=== PATIENT | male | born 1990 | race Caucasian/White ===

== ENCOUNTER → 2021-08-17 15:52 | Outpatient (BNVA) | payer OTHER, SELFPAY | PROVIDERS: Family Provider Family Medicine; Visit Provider Nurse Practitioner Family | DX: Z20.822 Contact with and (suspected) exposure to COVID-19 (principal); J06.9 Acute upper respiratory infection, unspecified | CPT/HCPCS: 87400; 87635 ==

== ENCOUNTER 2023-08-31 07:23 | Emergency (ER) | payer OTHER, SELFPAY ==
[2023-08-31 07:59] VITALS: BP 124/78; PULSE 126; TEMP 38.7; O2SAT 96; BMI 29.8
[2023-08-31 12:40] LABS: Adenovirus Not Detected (NOT DETECT); Chlamydia Pneumoniae Not Detected (NOT DETECT); Coronavirus 229E,HKU1,NL63,OC4 Not Detected (NOT DETECT); Human Metapneumovirus Not Detected (NOT DETECT); Human Rhinovirus/Enterovirus Not Detected (NOT DETECT); Influenza A Not Detected (NOT DETECT); Influenza A H1 Not Detected (NOT DETECT); Influenza A H1-2009 Not Detected (NOT DETECT); Influenza A H3 Not Detected (NOT DETECT); Influenza B Detected (NOT DETECT); Mycoplasma Pneumoniae Not Detected (NOT DETECT); Parainfluenza Virus Type 1 Not Detected (NOT DETECT); Parainfluenza Virus Type 2 Not Detected (NOT DETECT); Parainfluenza Virus Type 3 Not Detected (NOT DETECT); Parainfluenza Virus Type 4 Not Detected (NOT DETECT); Respiratory Syncytial Virus A Not Detected (NOT DETECT); Respiratory Syncytial Virus B Not Detected (NOT DETECT); SARS-COV-2 Not Detected (NOT DETECT)
--- NOTE | 2023-08-31 13:33 | ED_ITS ---
HPI - URI/Sore Throat General: Chief Complaint: Upper Respiratory Infection Stated Complaint: body aches, fever Time Seen by Provider: 08/31/23 07:24 Source: patient Mode of arrival: ambulatory History of Present Illness: 33-year-old male presents emergency room planing of 3-day onset of fever nausea and diarrhea. He has had a couple of episodes of posttussive emesis temp at home up to 100 203 cough nonproductive significant myalgias. Initially had some diarrhea but that resolved. MD elicited complaint: fever and cough Onset (ago): day(s) (3) Associated symptoms: Reports fever(s); Deny abdominal pain, chills or chest pain Review of Systems Const: Reports: fever(s), fatigue and malaise; Denies: chills Card: Denies: chest pain Resp: Reports: dyspnea, non-productive cough and wheezing GI: Denies: abdominal pain : Denies: dysuria, urinary frequency or urinary urgency Musc: Denies: neck pain or back pain Skin/Breast: Denies: rash Physical Exam Const: COMMON NORMALS: no acute distress GENERAL APPEARANCE: cooperative and comfortable ORIENTATION/CONSCIOUSNESS: Yes awake, Yes oriented to person, Yes oriented to place and Yes oriented to time HENMT: COMMON NORMALS: normocephalic, atraumatic and hearing grossly normal bilaterally HEAD & SCALP: normocephalic and atraumatic Resp: COMMON NORMALS: normal respiratory effort, No retractions, No use of accessory muscles and clear to auscultation bilaterally AUSCULTATION: clear to auscultation bilaterally Cardio: COMMON NORMALS: regular rate, regular rhythm and No murmurs present (Cardio) RATE: regular rate RHYTHM: regular rhythm GI: COMMON NORMALS: Soft to palpation and No hepatosplenomegaly present AUSCULTATION: Yes normoactive bowel sounds PALPATION: Yes Soft to palpation, No Tenderness to palpation present (GI), No Guarding due to palpation present (GI) and Yes No hepatosplenomegaly present Extremity: COMMON NORMALS: normal to inspection, capillary refill normal, no clubbing, cyanosis or edema, no calf tenderness and no pedal edema Neuro: SENSORIUM/ORIENTATION: Yes oriented to person, Yes oriented to place and Yes oriented to time Skin: COMMON NORMALS: no rashes or lesions noted GENERAL SKIN EXAM: no rashes or lesions noted Course Vital Signs: Vital signs: Vital Signs Temperature 101.6 F H 08/31/23 07:59 Pulse Rate 126 H 08/31/23 07:59 Blood Pressure 124/78 08/31/23 07:59 Pulse Oximetry 96 08/31/23 07:59 Oxygen Delivery Me thod Room Air 08/31/23 07:59 MDM - URI/Sore Throat Medical Decision Making Initially patient was discharged home with a diagnosis of viral respiratory infection he did not appear septic on arrival here we did a respiratory panel on him because of he arrived he still has a temp of 101.6 his other family members are here with him were afebrile he did come back for influenza B COVID RSV etc. were all negative he is outside the window for any treatment with antivirals. Nursing staff is contacting patient to advise him that he has have influenza B and is likely the cause of the illness for other family members that were with him with similar symptoms Differential Diagnosis Likely upper respiratory infection, viral infection and influenza Medical Records I reviewed the patient's medical records. Lab Data I reviewed the patient's lab results. Laboratory Results Adenovirus (PCR) Not detected (NOT DETECT) 08/31/23 08:42 C. pneumoniae DNA (PCR) Not detected (NOT DETECT) 08/31/23 08:42 Coronavirus 229E (PCR) Not detected (NOT DETECT) 08/31/23 08:42 Human Metapneumovir PCR Not detected (NOT DETECT) 08/31/23 08:42 Influenza A (H1) PCR Not detected (NOT DETECT) 08/31/23 08:42 Influ A (H1/09) PCR Not detected (NOT DETECT) 08/31/23 08:42 Influenza A (H3) PCR Not detected (NOT DETECT) 08/31/23 08:42 Influenza Type A (PCR) Not detected (NOT DETECT) 08/31/23 08:42 Influenza Type B (PCR) Detected (NOT DETECT) A 08/31/23 08:42 M. pneumoniae (PCR) Not detected (NOT DETECT) 08/31/23 08:42 Parainfluenza 1 (PCR) Not detected (NOT DETECT) 08/31/23 08:42 Parainfluenza 2 (PCR) Not detected (NOT DETECT) 08/31/23 08:42 Parainfluenza 3 (PCR) Not detected (NOT DETECT) 08/31/23 08:42 Parainfluenza 4 (PCR) Not detected (NOT DETECT) 08/31/23 08:42 RSV Type A (PCR) Not detected (NOT DETECT) 08/31/23 08:42 RSV Type B (PCR) Not detected (NOT DETECT) 08/31/23 08:42 Entero/Rhino (PCR) Not detected (NOT DETECT) 08/31/23 08:42 SARS-CoV-2 (PCR) Not detected (NOT DETECT) 08/31/23 08:42 All radiology interpretation(s) finalized by discharge Discharge Plan Discharge Patient Disposition: Home Clinical Impression: Viral infection, Influenza B Condition: Stable Prescriptions: No Action acetaminophen 500 mg Tablet 500 mg PO Q6H PRN (Reason: Pain) ibuprofen 200 mg Tablet 600 mg PO Q6H PRN (Reason: Pain) Discharge Orders: Discharge ED (Routine); Ordered 08/31/23 Ordered By: Arnol Bertrand Discharge Diet: Usual diet Discharge Activity: Increase activity as tolerated Patient Instructions: Opioid Safety, Pain Management, Viral Syndrome - Adult Activity Restrictions/Additional Instructions: Thank you for choosing [facility] for your healthcare needs today. Please realize this is an emergency room and that we are providing you with a medical screening exam and this may not be complete and all inclusive of all the testing and or work up that you may need to determine your ailment or severity of your illness. It is very important that you follow up as instructed or that you return to the Emergency Department should you have concerns or if your condition changes or worsens in any way. Stand Alone Forms: Work/School Release Coding Level of Care Code ED Plumbing Service Technician for Milena Urrutia
== END 2023-08-31 09:23 | disposition home or self-care (01) ==
PROVIDERS: Emergency Provider Family Medicine
DX: J10.1 Influenza due to other identified influenza virus with other respiratory manifestations (principal); Z11.52 Encounter for screening for COVID-19
CPT/HCPCS: 87486; 87581; 87633; 99283